=== PATIENT | female | born 1950 | race Native Hawaiian/Other Pacific Islander ===

== ENCOUNTER 2017-05-25 16:08 | Outpatient (CLI) | payer OTHER, MEDICARE | END 2017-05-25 20:01 | disposition home or self-care (01) | LOC: RAD 16:08 | DX: M54.5 Low back pain (principal) ==

== ENCOUNTER 2020-07-08 08:05 | Outpatient (CLI) | payer OTHER, MEDICARE | END 2020-07-08 20:09 | disposition home or self-care (01) | LOC: US 08:05 | DX: M79.662 Pain in left lower leg (principal); R22.42 Localized swelling, mass and lump, left lower limb ==

== ENCOUNTER 2021-01-09 22:26 | Emergency (ER) | payer OTHER, MEDICARE ==
[~2021-01-09] VITALS: Ht 160 cm; Wt 61.2 kg
[2021-01-09 23:54] LABS: PLATELET COUNT 257 K/uL (152-353)
[2021-01-10 00:10] LABS: POTASSIUM 3.9 mmol/L (3.6-5.2)
[2021-01-10 00:43] VITALS: BP 163/75; TEMP 98.7
== END 2021-01-10 00:49 | disposition home or self-care (01) ==
LOC: ED 22:26
PROVIDERS: Emergency Medicine Emergency Medical Services
DX: R51.9 Headache, unspecified (principal); M62.838 Other muscle spasm
CPT/HCPCS: 36415; 80048; 85027; 96360; 96374; 96375; 99284; J1885; J2270; J2405

== ENCOUNTER 2022-10-31 09:01 | Outpatient (CLI) | payer OTHER, MEDICARE | END 2022-10-31 21:36 | disposition home or self-care (01) | LOC: RAD 09:01 | PROVIDERS: ATTEND Physician Assistant | DX: M54.2 Cervicalgia (principal) ==

== ENCOUNTER 2023-12-12 08:45 | Outpatient (CLI) | payer OTHER, MEDICARE ==
[~2023-12-12] VITALS: Ht 157.5 cm; Wt 55.3 kg
[2023-12-12] MEDS ORDERED: REGADENOSON 0.4 MG/5 ML IV ONE (10:33)
== END 2023-12-12 19:25 | disposition home or self-care (01) ==
LOC: NM 08:45
PROVIDERS: ATTEND Nurse Practitioner Adult Health
DX: R07.89 Other chest pain (principal); I10 Essential (primary) hypertension; R00.2 Palpitations
CPT/HCPCS: A9500; J2785